=== PATIENT | female | born 1990 | race Two or more races ===

== ENCOUNTER → 2016-03-24 | Outpatient (CLI) | payer MEDICAID ==
--- NOTE | 2016-03-24 11:38 | US ---
Sonography Limited to the Right Upper Quadrant of the Abdomen CLINICAL HISTORY: 25-year-old female with a history of alcohol abuse, and she believes that her eyes are jaundiced-looking, however her laboratory values were reportedly normal. TECHNIQUE: A curvilinear 5 MHz transducer was used to sonographically evaluate the right upper quadra nt of the abdomen. Color Doppler was used. COMPARISON STUDY: None. FINDINGS: The pancreatic contour is normal. The abdominal aorta is normal in size, and tapers normall y. The visualized IVC is normal in caliber. The hepatic vein trifurcation is normal. The main portal vein is patent. The liver is normal in size, measuring 16.5 mm along the right midaxillary line. Veronica portal echogenic fat is observed. There is no focal hepatic mass. There is no intra or extrahepatic b ile duct dilatation. The common bile duct measures 3.5 mm. The gallbladder is moderately distended, a nd there is no evidence of cholelithiasis, sludge, polyp, wall thickening, pericholecystic fluid, or sonographic Wiley sign. The wall thickness is 1.5 mm. The right kidney is normal in size, shape, and contour, with a normal renal cortical thickness, and no focal renal mass or hydronephrosis, and blas ures 10.7 x 5.5 x 5.0 cm. There is no ascites or right pleural effusion. IMPRESSION: Normal study.
--- NOTE | 2016-03-24 12:04 | US ---
Left Breast Ultrasound History: Evaluate painful palpable area in the upper outer left breast in a 25-year-old female. Technique: Longitudinal and transverse images were obtained utilizing a 15 MHz transducer. Findings: On physical examination, an area of asymmetry is detected in the upper outer left breast. S onographic interrogation of the region demonstrates prominent fibroglandular elements. No solid or cy stic mass is seen. Impression: Benign sonographic findings, BI-RADS 2. Recommendation: Continued clinical follow up and as long as physical examination is benign, routine m ammographic screening suggestive the age of 42.. Findings and follow up recommendations were reviewed with the patient in detail. [facility] will send a result letter to the patient.
== END ==
LOC: FIMAGING 10:41
PROVIDERS: ATTEND Nurse Practitioner
DX: Z12.39 Encounter for other screening for malignant neoplasm of breast (principal); N64.4 Mastodynia